=== PATIENT | female | born 1960 | race African-American/Black ===

== ENCOUNTER 2022-08-18 22:52 | Emergency (ER) | payer SELFPAY ==
--- NOTE | 2022-08-19 00:14 | PC.NURSE ---
patient stated she was in too much pain to wait and left triage area
== END 2022-08-19 01:12 | disposition left against medical advice (07) ==
DX: Z53.21 Procedure and treatment not carried out due to patient leaving prior to being seen by health care provider (principal)
CPT/HCPCS: 99199